=== PATIENT | male | born 1990 | race African-American/Black ===

== ENCOUNTER → 2025-01-11 05:19 | Outpatient (BNV) | payer MEDICAID, SELFPAY | PROVIDERS: Visit Provider Radiology Vascular & Interventional Radiology | DX: R05.9 Cough, unspecified (principal) | CPT/HCPCS: 71045 ==

== ENCOUNTER 2025-01-11 06:08 | Emergency (ER) | payer MEDICAID, SELFPAY ==
--- NOTE | ~2025-01-11 | XR_ITS ---
CLINICAL HISTORY: cough 1 view chest x-ray. Comparison: None Findings: The lungs are adequately expanded. No focal consolidation. No effusion or pneumothorax. Cardiac and mediastinal contours are within normal limits. No acute osseous abnormality Impression: No acute process. This document has been electronically signed by: Dipak Seaman MD on 01/11/2025 06:43:45
[2025-01-11 06:13] VITALS: BP 118/68; PULSE 60; RESP 16; TEMP 36.6; O2SAT 99; BMI 30.8
--- NOTE | 2025-01-11 06:28 | PC.NURSE ---
pt confirms bloody stool for a week, initially thought it could be food poisoning but it has gone on too long, denies fever and vomit. Pt confirms nausea, cough and mild intermittent abd pain. respirations even and unlabored.
[2025-01-11 06:42] LABS: MANUAL DIFF FLAG NO
[2025-01-11 06:43] LABS: Hematocrit 39.5 % (42.0-52.0); Hemoglobin 13.2 g/dl (14.0-18.0); Imm Gran Abs Auto 0.04 X10*3/uL (0.00-0.03); Imm Gran Pct Auto 0.5 % (0.0-0.4); Lymphocytes Absolute Auto 2.3 X10*3/uL (1.2-4.9); Mean Corpuscular HGB Conc 33.4 g/dl (31.0-36.0); Mean Corpuscular Hemoglobin 32.0 pg (27.0-33.0); Mean Corpuscular Volume 95.9 fL (80.0-98.0); NRBC Abs Auto 0.000 X10*3/uL (0.0-0.012); NRBC Pct Auto 0.0 /100WBC (0.0-0.2); Platelet Count 235 X10*3/uL (160-400); Red Blood Count 4.12 X10*6/uL (4.60-5.80); White Blood Count 7.8 X10*3/uL (4.8-10.8)
[2025-01-11 07:01] LABS: Alanine Aminotransferase 53 U/L (0-40); Albumin Level 4.1 g/dL (3.5-5.0); Alkaline Phosphatase 45 U/L (39-117); Anion Gap 11 (12-20); Aspartate Amino Transferase 48 U/L (5-37); Blood Urea Nitrogen 12 mg/dL (9-16); Calcium 8.9 mg/dL (8.4-10.2); Carbon Dioxide 26 mmol/L (22-29); Chloride 109 mmol/L (96-108); Creatinine Clr Calc Pharmacy 105.8; Estimated Glomerular Filt Rate > 60; Lipase 32 U/L (8-78); Potassium 3.6 mmol/L (3.3-5.1); Sodium 142 mmol/L (135-145); Total Protein 7.2 g/dL (6.5-8.0)
--- OUTSIDE RECORDS SUMMARY | 2025-01-11 07:02 | XMS_ITS | Patient Health Record ---
Author Organization [facility] Address [address], [place] [id number] Care Team Providers Care Soap Maker Name Role Phone Derrick Angelo Primary Care Provider [facility], Nursing Unavailable [phone] Allergies Allergen (clinical drug ingredient) Drug/Non Drug Allergy documented on EMR Reaction Allergy Type Onset Date Status aspirin Aspirin EC anaphylaxis Drug Allergy Acti ve Results Component Value Reference Range Notes COMPREHENSIVE METABOLIC PANE L Reviewed date:10/29/2024 09:52:13 AM Interpretation:Glu-63 Performing Lab: Notes/Report: Sodium 141 133-145 mmol/L Potassium 3.8 3.5-5.5 mmol/L Chloride 107 96-110 mmol/L CO2 28 21-32 mmol/L Anion Gap 6 3-11 Glucose 63 70-100 mg/dL BUN 15 5-25 mg/dL Creatinine 1.10 0.70-1.30 mg/dL eGFR 89 >=60 mL/min/1.73m2 Calculati on based on the Chronic Kidney Disease Epidemiology Collaboration (CKD-EPI) equation refit without adjustment for race. BUN/Creatinine Ratio 13.6 Calcium 8.9 8.5-10.5 mg/dL AST (SGOT) 24 10-42 unit/L ALT (SGPT) 54 10-60 unit/L Alkaline Phosphatase 53 42-121 unit/L Total Protein 7.6 6.0-8.0 g/dL Albumin 4.1 3.2-5.0 g/dL Total Bilirubin 0.8 0.0-1.4 mg/dL COMPLETE BLOOD COUNT Reviewed date:10/29/2024 09:52:46 AM Interpretation:Abnormal Performing Lab: Notes/Report: WBC 8.3 4.8-10.8 K/mcL RBC 4.50 4.50-5.50 M/mcL Hemoglobin 14.2 13.5-17.5 g/dL Hematocrit 44.3 42.0-54.0 % MCV 99.1 79.0-98.0 FL MCH 31.8 27.0-32.0 pcg MCHC 32.1 32.0-37.0 g/dL RDW 12.1 11.0-15.0 % Platelets 205 130-400 K/mcL MPV 11.8 7.0-11.0 FL NRBC 0.0 <1.0 % NRBC Absolute 0.00 <0.10 K/mcL LIPID PANEL WITH REFLEX TO D IRECT LDL Reviewed date:10/29/2024 09:52:24 AM Interpretation:trig-186 Performing Lab: Notes/Report: Cholesterol 186 0-200 mg/dL Triglycerides 186 0-150 mg/dL HDL 54 >=40 mg/dL LDL Calculated 95 0-100 mg/dL VLDL Cholesterol Dave 37.2 Non HDL Chol. (LDL+VLDL) 132 <145 mg/dL Chol/HDL Ratio 3.4 0.0-4.4 THYROID STIMULATING HORMONE WITH REFLEX TO FREE T4 AND FREE T3 Reviewed date:10/29/2024 09:52:30 AM Interpretation:Normal Performing Lab: Notes/Report: TSH 1.75 0.40-4.00 mcIU/mL TREPONEMA PALLIDUM ANTIBODY WITH REFLEX TO RPR AND PARTICLE AGGLUTINATION Reviewed date:10/29/2024 09:50:05 AM Interpretation:Negative Performing Lab: Notes/Report: T. Pallidum Antibodies Negative Negative HIV 1, 2 ANTIBODY, P24 ANTIG EN WITH REFLEX TO DIFFERENTIATION Reviewed date:10/29/2024 09:50:19 AM Interpretation:Negative Performing Lab: Notes/Report: This assay is a 4th generation assay allowing for earlier detection of HIV infection by detecting the presence of the HIV-1 p24 antigen as well as the traditional antibodies to HIV type 1 (including group O) and type 2. Use of a 4th generation assay is the current CDC recommendation for HIV screening. HIV Combo AB/AG Negative Negative HEPATITIS C ANTIBODY Reviewed date:10/29/2024 09:50:26 AM Interpretation:Negative Performing Lab: Notes/Report: Hepatitis C Antibody Negative Negative CHLAMYDIA TRACHOMATIS AND NE ISSERIA GONORRHOEAE MOLECULAR STUDY Reviewed date:10/29/2024 09:49:58 AM Interpretation:Negative Performing Lab: Notes/Report: Neisseria gonorrhoeae PCR Negative Negative Chlamydia trachomatis PCR Negative Negative HEPATITIS B SURFACE ANTIGEN WITH REFLEX TO CONFIRMATION Reviewed date:10/29/2024 09:51:32 AM Interpretation:Negative Performing Lab: Notes/Report: Over the counter supplements containing high doses of biotin may interfere with this assay. If interference is suspected, patients shoud be retested after refraining from biotin supplements for 72 hours. Hepatitis B Surface Ag Negative Negative HEPATITIS C VIRUS QUANTITATI VE MOLECULAR STUDY Reviewed date:10/30/2024 07:03:52 PM Interpretation:Negative Performing Lab: Notes/Report: HCV Qual Interp Not Detected Not Detected HCV RNA not detected, unable to report quantitative results. HEPATITIS B CORE ANTIBODY, T OTAL Reviewed date:10/29/2024 09:50:33 AM Interpretation:Negative Performing Lab: Notes/Report: Hep B Core Total Ab Negative Negative HEPATITIS B SURFACE ANTIBODY Reviewed date:10/29/2024 09:51:53 AM Interpretation:+ immunity Performing Lab: Notes/Report: >=10 mIU/mL is considered to be consistent with immunity. Hepatitis B Surface Ab Positive Negative Hepatitis B Surface Ab Quantitative >1000.0 QUANTIFERON(R)-TB GOLD PLUS, 1 TUBE Reviewed date:11/01/2024 09:42:07 AM Interpretation:Negative Performing Lab:NL2, [facility] [id number] [place], [place] [id number] Angeloorlin Cheng Dow Notes/Report: FASTING: UNKNOWN QUANTIFERON(R)-TB GOLD PLUS, 1 TUBE NEGATIVE NEGATIVE Negative test result. M. tuberculosis complex infection unlikely. NIL 0.02 MITOGEN-NIL 8.18 TB1-NIL 0.00 TB2-NIL 0.02 The Nil tube value reflects the background interferon gamma immune response of the patient's blood sample. This value has been subtracted from the patient's displayed TB and Mitogen results. Lower than expected results with the Mitogen tube prevent false-negative Quantiferon readings by detecting a patient with a potential immune suppressive condition and/or suboptimal pre-analytical specimen handling. The TB1 Antigen tube is coated with the M. tuberculosis-specific antigens designed to elicit responses from TB antigen primed CD4+ helper T-lymphocytes. The TB2 Antigen tube is coated with the M. tuberculosis-specific antigens designed to elicit responses from TB antigen primed CD4+ helper and CD8+ cytotoxic T-lymphocytes. For additional information, please refer to https://Medine.Ripl/faq/SOP524 (This link is being provided for informational/ educational purposes only.) Reason For Referral Reason [facility] [address] [place] interested in having vasectomy Diagnosis 1 Encounter for steril ization (Z30.2) Referral Organization [facility] Referring Provider First Name Derrick Referring Provider Last Name Gi Referring Provider Speciality Nurse Prac titioner Referred Organization [facility] Referred Provider Troy Farmerl ogy Referred Address [address] [facility],[place], [id number], Referred Provider Specialty Urology General Notes Jannette Richards 12/12/2024 02:37:30 PM > referral faxed, [phone] x 12 visits Referral Priority Routine Immunizations Vaccine Route Administration Date Status Comme nts Hepatitis B (20 or more) Unknown 09/22/2017 Administere d Hepatitis B (20 or more) Unknown 11/18/2021 Administere d Hepatitis B (20 or more) Unknown 09/19/2022 Administere d Hepatitis B (20 or more) Unknown 10/17/2022 Administere d Tdap Unknown 05/24/2017 Administered Tdap Unknown 04/02/2021 Administered Td (adult) Unknown 07/05/2024 Administered MMR Unknown 11/18/2021 Administered Hepatitis A Unknown 11/18/2021 Administered Hepatitis A Unknown 09/19/2022 Administered Hepatitis A Unknown 10/17/2022 Administered Moderna Covid-19 Vaccine Administration - First Dose (Single Dose 100MCG/0.5ML 1ST) Unknown 11/25/2020 Administered Moderna Covid-19 Vaccine Administration - Second Dose (Single Dose 100 MCG/0.5ML 2ND) Unknown 12/23/2020 Administered Moderna Covid-19 Booster Administration - Third Dose (Single Dose 50 mcg/0.25 mL Unknown 06/25/2021 Administered Problems Problem Type SNOMED Code ICD Code Onset Dates Problem Status W/U Status Risk Notes Problem Obesity (491224083) Obesity, unspecified (E66.9) Active confirmed Problem Body mass index 30.00 to 34.99 (742174907007292 ) Body mass index [BMI] 32.0-32.9, adult (Z68.32) Active confirmed Problem Sheltered homelessness (821274347249670 ) Sheltered homelessness (Z59.01) Active confirmed Vital Signs Temperature 97.3 degrees Fahrenheit 10/26/2024 Blood pressure diastolic 76 12/12/2024 Oximetry 96 12/12/2024 Height 70 in 12/12/2024 Blood pressure systolic 121 12/12/2024 Weight 223.8 lbs 12/12/2024 BMI 32.11 kg/m2 12/12/2024 Encounters Encounter Location Date Provider Diagnosis [address] [id number] 12/12/2024 Derrick Angelo Encounter for screening for COVID-19 Z11.52 ; Encounter for general adult medical examination with abnormal findings Z00.01 ; Encounter for sterilization Z30.2 ; Body mass index [BMI] 32.0-32.9, adult Z68.32 and Obesity, unspecified E66.[address] [id number] 10/26/2024 Nursing [facility] Encounter for screening for cardiovascular disorders Z13.6 ; Encounter for screening for respiratory tuberculosis Z11.1 ; Encounter for screening for infectious and parasitic diseases, unspecified Z11.9 ; Encounter for screening for other suspected endocrine disorder Z13.29 ; Encounter for screening for infections with a predominantly sexual mode of transmission Z11.3 ; Sheltered homelessness Z59.01 ; Encounter for screening for depression Z13.31 and Encounter for screening for COVID-19 Z11.52 Assessments Encounter Date Diagnosis (ICD Code) Assessment Notes Treatment Notes Treatment Clinical Notes Section Notes 10/26/2024 Encounter for screening for cardiovascular disorders (ICD-10 - Z13.6) 12/12/2024 Encounter for general adult medical examination with abnormal findings (ICD-10 - Z00.01) Annual PE performed.General recommendation for good health made: brush/floss your teeth 2x per day. Eat a healthy diet and obtain 30 minutes of aerobic exercise 5/7 days per week.. Maintain high in take of water and avoid soda and energy drinks. Get 8 hours of sleep every night. 12/12/2024 Encounter for screening for COVID-19 (ICD-10 - Z11.52) Covid screening is negative. Discussed in detail with patient how to practice social distancing by avoiding public spaces and crowds now, wearing a mask in public to keep nose and mouth covered, and washing hands frequently especially before eating and after using the bathroom. Return to clinic if you develop any symtpoms of concern to be rescreened or go to the emergency room if you are having concerning symptoms for COVID-19. 10/26/2024 Encounter for screening for respiratory tuberculosis (ICD-10 - Z11.1) 12/12/2024 Encounter for sterilization (ICD-10 - Z30.2) requests referral to urology 10/26/2024 Encounter for screening for infectious and parasitic diseases, unspecified (ICD-10 - Z11.9) 12/12/2024 Body mass index [BMI] 32.0-32.9, adult (ICD-10 - Z68.32) Engaged discussion on maintaining healthy lifestyle: healthy diet low on fats and simple carbohydrates, and regular physical exercise of at least 30 minutes daily 10/26/2024 Encounter for screening for other suspected endocrine disorder (ICD-10 - Z13.29) 12/12/2024 Obesity, unspecified (ICD-10 - E66.9) Engaged discussion on maintaining healthy lifestyle: healthy diet low on fats and simple carbohydrates, and regular physical exercise of at least 30 minutes daily 10/26/2024 Encounter for screening for infections with a predominantly sexual mode of transmission (ICD-10 - Z11.3) 10/26/2024 Sheltered homelessness (ICD-10 - Z59.01) Medical, social, and psych history reviewed and documented. [facility] records obtained, immunization history updated. No medication reconciliation done as pt. does not report taking any medication. Denies any issues or concerns at time of intake. Pt. given an appt date to establish care with provider, encouraged to contact clinic with any urgent issues or concerns prior to scheduled appt 10/26/2024 Encounter for screening for depression (ICD-10 - Z13.31) PHQ-9 assessed, score was 0, pt. engaged in services with [facility] and [facility]. 10/26/2024 Encounter for screening for COVID-19 (ICD-10 - Z11.52) Covid screening is negative. Discussed in detail with patient how to practice social distancing by avoiding public spaces and crowds now, wearing a mask in public to keep nose and mouth covered, and washing hands frequently especially before eating and after using the bathroom. Return to clinic if you develop any symtpoms of concern to be rescreened or go to the emergency room if you are having concerning symptoms for COVID-19. 10/26/2024 Other Pt. does not reporting needing a dental referral, pt. had an appt at [facility] on 09/28/24 Lab work drawn as ordered, per protocol using aseptic technique. Client will be notified of all lab values within two weeks, Client agrees with plan, allowed to clarify questions about plan. 12/12/2024 Other Plan Of Treatment Pending Test Test Name Order Date CBC 10/26/2024 CHLAMYDIA / GC DNA W RFLX 10/26/2024 HCV VIRAL LOAD 10/26/2024 HEPATITIS B CORE AB TOTAL 10/26/2024 HEPATITIS B SURFACE ANTIBODY 10/26/2024 HEPATITIS B SURFACE ANTIGEN 10/26/2024 HIV 1 AND 2 ANTIBODY SCREEN 10/26/2024 LIPID PROFILE 10/26/2024 QUANTIFERON TB GOLD 10/26/2024 TSH CASCADE 10/26/2024 COMPREHENSIVE METABOLIC PANEL 10/26/2024 TREPONEMA PALLIDUM ANTIBODY WITH REFLEX TO RPR AND PARTICLE AGGLUTINATION 10/26/2024 HEPATITIS C ANTIBODY 10/26/2024 Next Appt Details Provider Name:Derrick hein, 12/12/2025 09:00:00 AM, [address] [facility], [place], [place], [id number], Insurance Providers Payer Name Payer Address Payer Phone Subscriber Number Group Number Insured Name Patient Relationship to Insured Coverage Start Date Coverage End Date [place] Medicaid C3 [address] [place], [place] [phone] [id number] Johann Briscoe Self - patient is the insured Medical (General) History Surgical History Surgery Date(Month/Year) Laceration Right forearm 2006 [place], 4th knuckle broken 2011
[2025-01-11 07:15] LABS: Appearance Urine Clear; Glucose Urine UA Negative (Negative); PH 6.0 (5.0-9.0); Specific Gravity - Urine >= 1.030 (1.005-1.025); UMIC TRIGGER UACC YES
[2025-01-11 07:19] LABS: Resp Syncy Virus RNA Qual PCR NEGATIVE (Negative); SARS COV2 PCR INHOUSE NEGATIVE (Negative)
[2025-01-11 07:21] VITALS: BP 124/73; PULSE 59; RESP 16; TEMP 36.6; O2SAT 93
--- NOTE | 2025-01-11 07:23 | PC.NURSE ---
Assumed care of patient. Pt is calm and cooperative, A+Ox4, ambulatory. Pt sts abdominal pain in lower abdomen 05/25 now, no nausea or vomitting. Pt sts a recent dry cough, RR even and unlabored, denies CP or SOB. Lung sounds clear.
--- NOTE | 2025-01-11 07:28 | ED_ITS ---
HPI - Abdominal Pain General Chief Complaint: Abdominal Pain Stated Complaint: n/v/d, blood in stool Time Seen by Provider: 01/11/25 07:06 Source: patient Mode of arrival: ambulatory Limitations: no limitations History of Present Illness ED Provider: HPI narrative: 34-year-old presenting with as he describes loose stools, no fevers or chills some abdominal cramping, no recent travels, no nausea no vomiting reported, his BM for stool sample in the ER was well formed. Related Data Previous Rx's ?Medication ?Instructions ?Recorded azithromycin 500 mg tablet 500 mg PO BID 5 days #10 ta bs 01/11/25 dicyclomine 10 mg capsule 10 mg PO TID PRN cramps #20 caps 01/11/25 loperamide 2 mg capsule 2 mg PO Q6H PRN loose stool #30 01/11/25 caps tinidazole 500 mg tablet 2 g (4 x 500 mg) PO ONCE 1 d ay #4 01/11/25 tabs Allergies Allergy/AdvReac Type Severity Reaction Status Date / Time Sulfa (Sulfonamide AdvReac Unknown Verified 01/11/25 06:15 Antibiotics) Review of Systems Constitutional: Reports as per HPI [facility] Social History Social History Smoked in Last 30 Days: No Use of substances other than those prescribed or required for medical reasons: Yes Substance Use Type: Marijuana Advance Directives: No Advance Directives Information Provided: Yes Do you have a plan to hurt others: No Plan Physical Exam ED Vital Signs: Vital Signs - 24 hr 01/11/25 06:13 01/11/25 07:21 01/11/25 07:50 Temperature 97.9 F 98 F 98 F Pulse Rate 60 59 59 Respiratory Rate 16 16 16 Blood Pressure 118/68 124/73 124/73 Pulse Oximetry 99 93 93 Oxygen Delivery Method Room Air Room Air Room Air BMI result Body Mass Index 30.8 Const Other: * Gen: ?Overall well-appearing patient * HEENT: PERRLA, EOMI, MMM, * Neck: Supple, no LAD * CV: RRR, no obvious murmurs appreciated * Resp: ?No wheezing rales rhonchi no stridor moving air well * Abd: ?Bowel sounds are present, no tenderness no rebound no rigidity * MSK: FROM, strength 5/5 all extremities * Skin: Warm, dry, intact, * Neuro: ?Alert and oriented x3, moving upper and lower extremities symmetrically, no obvious facial asymmetry noted Medical Decision Making Medical Decision Making [facility] Narrative: No risk factors for C diff colitis, or travels diarrhea, benign abdominal exam did not feel further imaging is indicated we will send his stool sample to evaluate for infectious etiology otherwise see my discharge instructions 14:00 I left a message with the instructions for patient regarding antibiotics and positive stool cultures Differential Diagnosis Differential Diagnoses: The differential diagnosis associated with the presentation includes (Travels diarrhea, food poisoning, IBS, diverticulitis, appendicitis) Admission/Observation Consideration of admission/observation: Escalation of care including admission/observation considered (Well-appearing, reassuring workup) Lab Data [facility] Lab Attestation statement: I reviewed the patient's lab results. 01/11/25 06:37 01/11/25 06:37 Labs: Lab Results 01/11/25 01/11/25 01/11/25 Range/Units 06:37 07:08 07:43 WBC 7.8 (4.8-10.8) X10*3/uL RBC 4.12 L (4.60-5.80) X10*6/uL Hgb 13.2 L (14.0-18.0) g/dl Hct 39.5 L (42.0-52.0) % MCV 95.9 (80.0-98.0) fL MCH 32.0 (27.0-33.0) pg MCHC 33.4 (31.0-36.0) g/dl RDW 12.1 (11.0-16.0) % Plt Count 235 (160-400) X10*3/uL MPV 10.3 (9.4-12.4) fL Immature Gran % (Auto) 0.5 H (0.0-0.4) % Neut % (Auto) 56.3 (45-73) % Lymph % (Auto) 29.0 (20-40) % [place] % (Auto) 11.2 H (2-11) % Eos % (Auto) 2.4 (0-4) % Baso % (Auto) 0.6 (0-2) % Lymph # (Auto) 2.3 (1.2-4.9) X10*3/uL [place] # (Auto) 0.9 (0.1-1.2) X10*3/uL Eos # (Auto) 0.2 (0.0-0.4) X10*3/uL Baso # (Auto) 0.1 (0.0-0.2) X10*3/uL Abs Immat Gran (auto) 0.04 H (0.00-0.03) X10*3/uL Absolute Neuts (auto) 4.4 (2.0-8.3) x10*3/uL Absolute Nucleated RBC 0.000 (0.0-0.012) X10*3/uL Nucleated RBC % (auto) 0.0 (0.0-0.2) /100WBC Sodium 142 (135-145) mmol/L Potassium 3.6 (3.3-5.1) mmol/L Chloride 109 H (96-108) mmol/L Carbon Dioxide 26 (22-29) mmol/L Anion Gap 11 L (12-20) BUN 12 (9-16) mg/dL Creatinine 1.13 (0.5-1.4) mg/dL Estim Creat Clear Calc 105.8 Estimated GFR > 60 Random Glucose 100 (60-115) mg/dL Calcium 8.9 (8.4-10.2) mg/dL Total Bilirubin 0.7 (0.0-1.0) mg/dL AST 48 H (5-37) U/L ALT 53 H (0-40) U/L Alkaline Phosphatase 45 (39-117) U/L Total Protein 7.2 (6.5-8.0) g/dL Albumin 4.1 (3.5-5.0) g/dL Lipase 32 (8-78) U/L Urine Color Yellow Urine Appearance Clear Urine pH 6.0 (5.0-9.0) Ur Specific [place] >= 1.030 H (1.005-1.025) Urine Protein Trace (Neg-Trace) mg/dL Urine Glucose (UA) Negative (Negative) mg/dL Urine Ketones Trace (Negative) mg/dL Urine Blood Negative (Negative) Urine Nitrite Negative (Negative) Ur Leukocyte Esterase Trace H (Negative) Urine RBC 0-2 (0-2) /HPF Urine WBC 0-5 (0-5) /HPF Ur Squamous Epith Cells 0-2 (0-2) /HPF Urine Bacteria None Seen (None Seen) Hyaline Casts 0-2 (0-2) /LPF Stl C. cayetanensis PCR Not Detected (Not Detect.) Stool Rotavirus A PCR Not Detected (Not Detect.) Stl Adenov F 40/41 PCR Not Detected (Not Detect.) Stool Astrovirus (PCR) Not Detected (Not Detect.) Stool Campylobacter PCR Detected A (Not Detect.) Stool Cryptosporidium PCR Not Detected (Not Detect.) Stl Sh Tox Pr E STEC PCR Not Detected (Not Detect.) Stool E coli O157 PCR Not applicable (Not Detect.) Stl Enterotoxigenic E PCR Not Detected (Not Detect.) Stool EPEC (PCR) Not Detected (Not Detect.) Stool EAEC (PCR) Not Detected (Not Detect.) Stl E. histolytica PCR Not Detected (Not Detect.) Stool Giardia Lamblia PCR Detected A (Not Detect.) Stl P. shigelloides PCR Not Detected (Not Detect.) Stool Salmonella PCR Not Detected (Not Detect.) Stool Sapovirus (PCR) Not Detected (Not Detect.) Stl Shigella/EIEC PCR Not Detected (Not Detect.) St Y.enterocolitica PCR Not Detected (Not Detect.) Stool Vibrio (PCR) Not Detected (Not Detect.) Stl Vibrio cholerae PCR Not Detected (Not Detect.) Stl Norovirus GI/GII PCR Not Detected (Not Detect.) Influenza Type A (PCR) NEGATIVE (Negative) Influenza Type B (PCR) NEGATIVE (Negative) RSV RNA Qual (PCR) NEGATIVE (Negative) SARS-CoV-2 RNA (RT-PCR) NEGATIVE (Negative) Tests considered The following testing was considered but not selected: CT abdomen and pelvis Prescription Management I considered prescription management with: Antibiotic Medications Administered Discontinued Medications Generic Name Dose Route Start Last Admin Trade Name Freq PRN Reason Stop Dose Admin Belladonna Alkaloids/Phenobarbital 10 ml 01/11/25 07:28 01/11/25 07:47 Phenobarb/Hyoscy/Atropine/Scop 10 Ml Elixir PO 01/11/25 07:29 10 ml ONCE ONE Administration Loperamide HCl 2 mg 01/11/25 07:28 01/11/25 07:47 Loperamide Hcl 2 Mg Capsule PO 01/11/25 07:29 2 mg ONCE ONE Administration Discharge Plan Discharge Clinical Impression: Frequent loose stools, Campylobacter enteritis Patient Disposition: Home, Self-Care Additional Instructions: Your blood work has been reassuring no evidence for dehydration, significant blood loss, you also had a viral swab, EKG all of which has been unremarkable Stool sample was sent for processing, it takes up to 48 hours to get results, in the meantime use loperamide for diarrhea and dicyclomine for abdominal cramping, we have discussed probiotics, probiotics to replenish eduar, avoiding any fresh fruits vegetables juices cutting down on caffeine right now, stick to rice, bananas, chicken stuck, boiled meat and vegetables, I am otherwise reassured by physical examination you and vital signs did not feel further imaging such as CAT scan is indicated, and of course if you have any other issues or concerns please come back to the ER. Prescriptions: New dicyclomine 10 mg capsule 10 mg PO TID PRN (Reason: cramps) Qty: 20 0RF loperamide 2 mg capsule 2 mg PO Q6H PRN (Reason: loose stool) Qty: 30 0RF Rx Instructions: 2mg after each loose BM max 16mg daily azithromycin 500 mg tablet 500 mg PO BID 5 Days Qty: 10 0RF tinidazole 500 mg tablet 2 g PO ONCE 1 Days Qty: 4 0RF Stand Alone Forms: Work/School Release Interventions: ED Discharge Assessment Last Done: 01/11/25 07:50 Discharge Date/Time: 01/11/25 07:55 Print Language: Arabic
[2025-01-11] MEDS: PHENobarb/Hyoscy/Atropine/Scop 10 ML ELIXIR PO (07:47)
[2025-01-11 07:50] VITALS: BP 124/73; PULSE 59; RESP 16; TEMP 36.6; O2SAT 93
[2025-01-11 13:09] LABS: E. coli EAEC Not Detected (Not Detect.); E. coli EPEC Not Detected (Not Detect.); E. coli ETEC Not Detected (Not Detect.); E. coli STEC Not Detected (Not Detect.); Shigella sp./EIEC Not Detected (Not Detect.)
== END 2025-01-11 07:55 | disposition home or self-care (01) ==
PROVIDERS: Emergency Provider Emergency Medicine
DX: R19.7 Diarrhea, unspecified (principal); K52.89 Other specified noninfective gastroenteritis and colitis; R10.9 Unspecified abdominal pain
CPT/HCPCS: 36415; 71045; 80053; 81001; 83690; 85025; 87507; 87637; 99283; 99284